=== PATIENT | female | born 1975 | race American Indian/Alaskan Native ===

== ENCOUNTER 2020-04-10 13:10 | Emergency (ER) | payer SELFPAY ==
[2020-04-10] MEDS ORDERED: oxyCODONE /ACETAMINOPHEN 5-325MG TAB PO PRN (14:08)
[2020-04-10] MEDS ORDERED: DIPHtheria,PERTUSSIS(ACELL),TETANUS VACCINE/PF 0.5 ML VIAL IM ONE (14:08)
--- NOTE | 2020-04-10 14:37 | Emergency Department Report ---
ED Head Trauma HPI - General Chief complaint: Head Injury Stated complaint: LAC TO RT CHEEK Time Seen by Provider: 04/10/20 14:08 Source: patient Mode of arrival: Ambulatory Limitations: No Limitations - History of Present Illness Initial comments: Patient is a 44-year-old female presents emergency room with complaints of a head injury that occurred just prior to arrival. She states that she was at work and she was trying to lower a trailer hitch. She states that she was cranking the handle and it rebounded and hit her in the face. She states that she immediately began to have a nosebleed and has a cut on her face. She has nose pain, right cheek pain, headache. She states that she felt like she wanted to pass out but did not have loss of consciousness. She states that she continues to have pain and headache. She denies any vision changes, vomiting, numbness, weakness, bowel or bladder incontinence, neck pain, back pain, any other injury. She is unsure of her last tetanus immunization. No past medical history. No allergies to medications. Last menstrual cycle March 29, 2020. - Related Data Previous Rx's Medication Instructions Recorded Last Taken Type Acetaminophen [Tylenol] 650 mg PO Q8HR PRN #20 capsule 04/10/20 Unknown Rx traMADoL [Ultram 50 MG tab] 50 mg PO Q6HR PRN #10 tablet 04/10/20 Unknown Rx Allergies/Adverse reactions: Allergies Allergy/AdvReac Type Severity Reaction Status Date / Time No Known Allergies Allergy Unverified 04/10/20 13:14 ED Review of Systems ROS: Stated complaint: LAC TO RT CHEEK Other details as noted in HPI Comment: All other systems reviewed and negative ED Past Medical Hx - Past Medical History Previous Medical History?: No - Surgical History Past Surgical History?: Yes Hx Cholecystectomy: Yes Additional Surgical History: Tubal ligation - Medications Home Medications: Home Medications Medication Instructions Recorded Confirmed Last Taken Type Acetaminophen [Tylenol] 650 mg PO Q8HR PRN #20 capsule 04/10/20 Unknown Rx traMADoL [Ultram 50 MG tab] 50 mg PO Q6HR PRN #10 tablet 04/10/20 Unknown Rx ED Physical Exam - General Limitations: No Limitations General appearance: alert, in no apparent distress - Head Head exam: Present: other (ttp over the nasal bone with dried blood present in the nares, no active bleeding, there is edema and ttp to the right maxillary region, 1 cm abrasion to the right maxillary region, no obvious deformity) - Eye Eye exam: Present: normal appearance, PERRL, EOMI, other (no signs of entrapement). Absent: periorbital swelling, periorbital tenderness Pupils: Present: normal accommodation - Neck Neck exam: Present: normal inspection, full ROM. Absent: tenderness - Respiratory Respiratory exam: Present: normal lung sounds bilaterally. Absent: respiratory distress, wheezes, rales, rhonchi, stridor, chest wall tenderness, accessory muscle use, decreased breath sounds, prolonged expiratory - Cardiovascular Cardiovascular Exam: Present: regular rate, normal rhythm, normal heart sounds. Absent: systolic murmur, diastolic murmur, rubs, gallop - Back Exam Back exam: Present: normal inspection, full ROM. Absent: paraspinal tenderness, vertebral tenderness - Neurological Exam Neurological exam: Present: alert, oriented X3, CN II-XII intact, normal gait. Absent: motor sensory deficit - Psychiatric Psychiatric exam: Present: normal affect, normal mood - Skin Skin exam: Present: warm, dry ED Course Vital Signs 04/10/20 04/10/20 04/10/20 13:16 15:05 15:21 Temperature 98.4 F Pulse Rate 76 Respiratory 15 18 18 Rate Blood Pressure 112/67 O2 Sat by Pulse 95 99 Oximetry 04/10/20 04/10/20 16:05 16:41 Temperature Pulse Rate 74 Respiratory 18 Rate Blood Pressure 112/75 O2 Sat by Pulse 99 Oximetry - Radiology Data Radiology results: report reviewed Ordering Physician: NAOMI BARNES Date of Service: 04/10/20 Procedure(s): CT head/brain wo con Accession Number(s): [id number] cc: NAOMI BARNES . CT head/brain wo con INDICATION / CLINICAL INFORMATION: 44 years Female; hit with trailer hitch, headache. TECHNIQUE: Routine CT head without contrast. All CT scans at this location are performed using CT dose reduction for ALARA by means of automated exposure control. COMPARISON: None. FINDINGS: BRAIN / INTRACRANIAL CONTENTS: No acute hemorrhage, mass effect, midline shift, hydrocephalus, or acute, large territorial infarct. No chronic infarct or atrophy appreciated. No significant white matter abnormality. CRANIOCERVICAL JUNCTION: No significant abnormality. ORBITS: No significant abnormality of visualized orbits. SINUSES / MASTOIDS: No significant abnormality in the visualized paranasal sinuses or mastoid air cells. ADDITIONAL FINDINGS: None. IMPRESSION: 1. No focal mass, hemorrhage, hydrocephalus, or acute, large territorial infarct. Signer Name: Duke Angel MD, III Signed: 04/10/2020 3:26 PM Workstation Name: [id number] Transcribed By: Dictated By: Duke Angel MD Electronically Authenticated By: Duke Angel MD Signed Date/Time: 04/10/201525 DD/ 21 TD/TT: Ordering Physician: NAOMI BARNES Date of Service: 04/10/20 Procedure(s): CT facial bones wo con Accession Number(s): [id number] cc: NAOMI BARNES CT facial bones wo con INDICATION / CLINICAL INFORMATION: 44 years Female; hit with trailer hitch, headache, R maxilla, nose. TECHNIQUE: Thin cut axial images obtained. Sagittal and coronal reconstructions performed. All CT scans at this location are performed using CT dose reduction for ALARA by means of automated exposure control. COMPARISON: None available. FINDINGS: Soft tissue swelling is seen in the right malar region. No signs of underlying facial fracture appreciated. Orbits and surrounding soft tissues are otherwise grossly normal. Minimal disc disease seen in the upper cervical region, without significant sequela appreciated. There is moderate osseous foraminal narrowing on the left at C4-5 from uncinate hypertrophy. IMPRESSION: 1. No facial bone fracture appreciated. Signer Name: Duke Angel MD, III Signed: 04/10/2020 3:27 PM Workstation Name: [id number] Transcribed By: HR Dictated By: Duke Angel MD Electronically Authenticated By: Duke Angel MD Signed Date/Time: 04/10/201526 DD/ 25 TD/TT: - Medical Decision Making Patient is a 44-year-old female presents emergency room with complaints of a head injury that occurred just prior to arrival. She states that she was at work and she was trying to lower a trailer hitch. She states that she was cranking the handle and it rebounded and hit her in the face. She states that she immediately began to have a nosebleed and has a cut on her face. She has nose pain, right cheek pain, headache. She states that she felt like she wanted to pass out but did not have loss of consciousness. She states that she continues to have pain and headache. She denies any vision changes, vomiting, numbness, weakness, bowel or bladder incontinence, neck pain, back pain, any other injury. She is unsure of her last tetanus immunization. No past medical history. No allergies to medications. Last menstrual cycle March 29, 2020. vitals are normal. on exam: ttp over the nasal bone with dried blood present in the nares, no active bleeding, there is edema and ttp to the right maxillary region, 1 cm abrasion to the right maxillary region, no obvious deformity, no focal neuro deficits. CT head: 1. No focal mass, hemorrhage, hydrocephalus, or acute, large territorial infarct. CT facial bones: 1. No facial bone fracture appreciated. Wound care performed by nurse to abrasion to right cheek, no laceration, does not need repair, superficial abrasion, no foreign body. Patient states that she still has a little bit of spotting from the nose but denies any heavy bleeding, Afrin spray placed by nurse and advised patient to hold pressure, she had no further episodes of bleeding. Patient given Percocet and Tdap while in the emergency department as she did not drive and symptoms improved. Discussed all results with patient and answered questions. Patient given prescription for Tylenol and tramadol. Advised patient Please take medication as prescribed as needed. Do not drive or operate machinery while taking severe pain medication. Please keep area clean, dry, covered. May wash with antibacterial soap and water and pat dry. May use triple antibiotic or Neosporin ointment twice a day. Follow-up with your primary care doctor. Return to emergency room for any new or worsening symptoms. Please do not use Afrin spray for more than 3 days, only use if having nosebleed, if nose begins to bleed please use 1 spray in the nasal and then hold pressure for 10 minutes straight. - Differential Diagnosis Facial fracture, skull fracture, abrasion, laceration, ICH, SDH, contusion - NEXUS Criteria Focal neurological deficit present: No Midline spinal tenderness present: No Altered level of consciousness: No Intoxication present: No Distracting injury present: No NEXUS results: C-Spine can be cleared clinically by these results. Imaging is not required. Critical care attestation.: If time is entered above; I have spent that time in minutes in the direct care of this critically ill patient, excluding procedure time. ED Disposition Clinical Impression: Epistaxis, Nose pain, Maxilla pain Head injury Qualifiers: Encounter type: initial encounter Qualified Code(s): S09.90XA - Unspecified injury of head, initial encounter Abrasion of cheek Qualifiers: Encounter type: initial encounter Qualified Code(s): S00.81XA - Abrasion of other part of head, initial encounter Disposition: DC- TO HOME OR SELFCARE Is pt being admited?: No Does the pt Need Aspirin: No Condition: Stable Instructions: Epistaxis (ED), Minor Head Injury (ED), Abrasion (ED) Additional Instructions: Please take medication as prescribed as needed. Do not drive or operate machinery while taking severe pain medication. Please keep area clean, dry, covered. May wash with antibacterial soap and water and pat dry. May use triple antibiotic or Neosporin ointment twice a day. Follow-up with your primary care doctor. Return to emergency room for any new or worsening symptoms. Please do not use Afrin spray for more than 3 days, only use if having nosebleed, if nose begins to bleed please use 1 spray in the nasal and then hold pressure for 10 minutes straight. Prescriptions: Acetaminophen [Tylenol] 650 mg PO Q8HR PRN #20 capsule PRN Reason: Pain, Moderate (4-6) traMADoL [Ultram 50 MG tab] 50 mg PO Q6HR PRN #10 tablet PRN Reason: Pain , Severe (7-10) Referrals: your, primary care doctor [Other] - 2-3 Days Forms: Work/School Release Form(ED) Time of Disposition: 16:21 Print Language: CAMBODIAN
--- NOTE | 2020-04-10 15:31 | Cat Scan Report ---
. CT head/brain wo con INDICATION / CLINICAL INFORMATION: 44 years Female; hit with trailer hitch, headache. TECHNIQUE: Routine CT head without contrast. All CT scans at this location are performed using CT dos e reduction for ALARA by means of automated exposure control. COMPARISON: None. FINDINGS: BRAIN / INTRACRANIAL CONTENTS: No acute hemorrhage, mass effect, midline shift, hydrocephalus, or acu te, large territorial infarct. No chronic infarct or atrophy appreciated. No significant white matter abnormality. CRANIOCERVICAL JUNCTION: No significant abnormality. ORBITS: No significant abnormality of visualized orbits. SINUSES / MASTOIDS: No significant abnormality in the visualized paranasal sinuses or mastoid air karishma ls. ADDITIONAL FINDINGS: None. IMPRESSION: 1. No focal mass, hemorrhage, hydrocephalus, or acute, large territorial infarct. Signer Name: Duke Angel MD, III Signed: 04/10/2020 3:26 PM Workstation Name: [id number]
--- NOTE | 2020-04-10 15:32 | Cat Scan Report ---
CT facial bones wo con INDICATION / CLINICAL INFORMATION: 44 years Female; hit with trailer hitch, headache, R maxilla, nose. TECHNIQUE: Thin cut axial images obtained. Sagittal and coronal reconstructions performed. All CT scans at this location are performed using CT dose reduction for ALARA by means of automated exposure control. COMPARISON: None available. FINDINGS: Soft tissue swelling is seen in the right malar region. No signs of underlying facial fracture apprec iated. Orbits and surrounding soft tissues are otherwise grossly normal. Minimal disc disease seen in the upper cervical region, without significant sequela appreciated. Ther e is moderate osseous foraminal narrowing on the left at C4-5 from uncinate hypertrophy. IMPRESSION: 1. No facial bone fracture appreciated. Signer Name: Duke Angel MD, III Signed: 04/10/2020 3:27 PM Workstation Name: [id number]
[2020-04-10] MEDS ORDERED: OXYMETAZOLINE 0.05% NASAL SPRAY NS ONE (15:47)
[2020-04-10 16:55] VITALS: BP 112/75
== END 2020-04-10 16:51 | disposition home or self-care (01) ==
LOC: ED 13:10
DX: S00.81XA Abrasion of other part of head, initial encounter (principal); S09.90XA Unspecified injury of head, initial encounter; J34.89 Other specified disorders of nose and nasal sinuses; R68.84 Jaw pain; R04.0 Epistaxis; Z79.899 Other long term (current) drug therapy; Z98.51 Tubal ligation status; Z90.49 Acquired absence of other specified parts of digestive tract; W22.8XXA Striking against or struck by other objects, initial encounter; Y93.89 Activity, other specified; Y92.89 Other specified places as the place of occurrence of the external cause; Y99.0 Civilian activity done for income or pay
CPT/HCPCS: 70450; 70486; 90471; 90715; 99283